=== PATIENT | female | born 1950 | race Caucasian/White ===

== ENCOUNTER 2017-08-31 17:10 | Emergency (ER) | payer MEDICARE, BC ==
[~2017-08-31] VITALS: Ht 165.1 cm; Wt 61.2 kg
[2017-08-31] MEDS ORDERED: ZOFRAN4 M3 ORAL (17:20)
[2017-08-31 17:35] VITALS: BP 114/57
--- NOTE | 2017-08-31 17:36 | Emergency Room Report ---
History of Present Illness General Chief Complaint: Abdominal Pain Source: Patient Present Illness HPI Patient presents with severe nausea. She feels bile coming up into her chest. This began several hours ago. She took Zofran earlier but it didn't help her. She felt intermittently nauseated after she had a laparoscopic cholecystectomy on July 09. She moved her bowels earlier today and stool was somewhat dark but not tarry. She's denies any fevers. There's no dyspnea. She states that the discomfort in her abdomen is about 8/10 at this time. She denies that it is "pain" - more queeziness and nausea. She's had to monitor how she eats after the laparoscopic cholecystectomy. Since that operation she's had problems with sinus congestion. She took some Tylenol earlier because of sinus pressure. She flew here from [place] to attend a wedding. She denies any major medical problems and doesn't take any medications on routine basis. She has asthma but has not heard herself wheezing. No dysuria, rashes, joint pain. Later in course she admits to waking up with a headache - pressure. Not sudden. Rates pain at 6-7/10, not radiate - more frontal, but global. Not usually with headache. Allergies: Coded Allergies: No Known Allergies (Unverified , 08/31/17) Patient History Past Medical History: see triage record Past Surgical History: polo Social History: Denies: smoking, drug use Social History Narrative from [place] - here for marriage Reviewed Nursing Documentation: PMH: Agreed, PSxH: Agreed Nursing Documentation-PMH Hx Cancer: Yes - Melanoma Hx Gastrointestinal Problems: Yes - Lap polo 07/09/17 Review of Systems All Other Systems: negative except mentioned in HPI Physical Exam Vital Signs Date Time Temp Pulse Resp B/P (MAP) Pulse Ox O2 Delivery O2 Flow Rate FiO2 08/31/17 17:13 98.8 80 18 113/59 98 Room Air Sp02 EP Interpretation: reviewed, normal General Appearance: no apparent distress - but appears ill, GCS 15, non-toxic Head: normocephalic, atraumatic Eyes: bilateral eye normal inspection, bilateral eye PERRL, bilateral eye EOMI ENT: moist mucus membranes, nasal congestion - clear Neck: supple, no meningismus Respiratory: lungs clear, normal breath sounds Cardiovascular #1: regular rate, rhythm Cardiovascular #2: 2+ radial (R) Gastrointestinal: normal inspection, normal bowel sounds, non tender, no mass, non-distended Rectal: heme negative stool Musculoskeletal: back normal, normal range of motion Neurologic: alert, oriented x3, vacuum technician III-XII nml as tested, motor strength/tone normal, DTRs symmetric, sensory intact, cerebellar normal, normal gait, speech normal Psychiatric: mood/affect normal Skin: normal inspection, warm/dry Medical Decision Making Diagnostic Impression: Primary Impression: Severe nausea Additional Impressions: Sinus headache Dehydration ER Course Patient presents with severe nausea and epigastric discomfort. Differential includes acute myocardial infarction, acute coronary syndrome, small bowel obstruction, postnasal drip amongst others. Zofran was not helpful. Evaluation with EKG, CXR, labs. Treatment with IV hydration, reglan, benadryl and pepcid. Concern for silent ischemic event. EKG no injury. Labs with elevated BUN. Stool guaiac negative. Min improvement. Zofran repeated and on repeat eval, she reported headache. CT head ordered. CT normal. Discussed possible observation for MRI in AM. She requested further hydration and repeat evaluation. Patient much improved and wants outpatient observation. Sinus congestion much improved after benadryl. UA reviewed and patient denies dysuria. Will check culture and contact patient if antibiotics indicated. No medical emergency at this time. Will observe as outpatient. Laboratory Tests Test 08/31/17 17:43 08/31/17 20:00 White Blood Count 8.8 K/UL (4.8-10.8) Red Blood Count 5.08 M/UL (4.20-5.40) Hemoglobin 14.7 G/DL (12.0-16.0) Hematocrit 46.7 % (37.0-47.0) Mean Corpuscular Volume 92 FL (80-99) Mean Corpuscular Hemoglobin 29.0 PG (27.0-31.0) Mean Corpuscular Hemoglobin Concent 31.5 G/DL (32.0-36.0) L Red Cell Distribution Width 12.0 % (11.6-14.8) Platelet Count 171 K/UL (150-450) Mean Platelet Volume 8.6 FL (6.5-10.1) Neutrophils (%) (Auto) % (45.0-75.0) Lymphocytes (%) (Auto) % (20.0-45.0) Monocytes (%) (Auto) % (1.0-10.0) Eosinophils (%) (Auto) % (0.0-3.0) Basophils (%) (Auto) % (0.0-2.0) Differential Total Cells Counted 100 Neutrophils % (Manual) 84 % (45-75) H Lymphocytes % (Manual) 8 % (20-45) L Monocytes % (Manual) 4 % (1-10) Eosinophils % (Manual) 0 % (0-3) Basophils % (Manual) 0 % (0-2) Band Neutrophils 4 % (0-8) Platelet Estimate Adequate Platelet Morphology Normal Red Blood Cell Morphology Normal Prothrombin Time 10.2 SEC (9.30-11.50) Prothrombin Time INR 1.0 (0.9-1.1) PTT 28 SEC (23-33) Sodium Level 142 MMOL/L (136-145) Potassium Level 3.8 MMOL/L (3.5-5.1) Chloride Level 106 MMOL/L (98-107) Carbon Dioxide Level 29 MMOL/L (21-32) Anion Gap 8 mmol/L (5-15) Blood Urea Nitrogen 20 mg/dL (7-18) H Creatinine 0.8 MG/DL (0.55-1.30) Estimate Glomerular Filtration Rate > 60 mL/min (>60) Glucose Level 97 MG/DL (74-106) Calcium Level 8.7 MG/DL (8.5-10.1) Total Bilirubin 1.1 MG/DL (0.2-1.0) H Direct Bilirubin 0.2 MG/DL (0.0-0.3) Aspartate Amino Transferase (AST) 19 U/L (15-37) Alanine Aminotransferase (ALT) 18 U/L (12-78) Alkaline Phosphatase 77 U/L (46-116) Troponin I 0.000 ng/mL (0.000-0.056) Total Protein 7.3 G/DL (6.4-8.2) Albumin 3.8 G/DL (3.4-5.0) Globulin 3.5 g/dL Albumin/Globulin Ratio 1.1 (1.0-2.7) Lipase 123 U/L (73-393) Urine Color Pale yellow Urine Appearance Clear Urine pH 5 (4.5-8.0) Urine Specific [place] 1.010 (1.005-1.035) Urine Protein Negative (NEGATIVE) Urine Glucose (UA) Negative (NEGATIVE) Urine Ketones Negative (NEGATIVE) Urine Occult Blood 2+ (NEGATIVE) H Urine Nitrite Negative (NEGATIVE) Urine Bilirubin Negative (NEGATIVE) Urine Urobilinogen Normal MG/DL (0.0-1.0) Urine Leukocyte Esterase 1+ (NEGATIVE) H Urine RBC 2-4 /HPF (0 - 2) H Urine WBC 5-10 /HPF (0 - 2) H Urine Squamous Epithelial Cells Few /LPF (NONE/OCC) Urine Bacteria Few /HPF (NONE) Urine Mucus Few /LPF (NONE/OCC) H EKG Diagnostic Results Rate: normal Rhythm: NSR ST Segments: no acute changes - STACEY Rhythm Strip Diag. Results EP Interpretation: yes Rhythm: NSR, no PVC's, no ectopy Chest X-Ray Diagnostic Results Chest X-Ray Diagnostic Results : Chest X-Ray Ordered: Yes # of Views/Limited/Complete: 1 View Indication: Other Interpretation: no consolidation, no effusion, no pneumothorax, no acute cardiopulmonary disease Impression: No acute disease Electronically Signed by: Erick Williamson MD CT/MRI/US Diagnostic Results CT/MRI/US Diagnostic Results : Imaging Test Ordered: head Impression no bleed, mass or other pathology Last Vital Signs Date Time Temp Pulse Resp B/P (MAP) Pulse Ox O2 Delivery O2 Flow Rate FiO2 08/31/17 22:50 98.1 78 18 116/64 97 Room Air Status: improved Disposition: HOME, SELF-CARE Condition: Improved Scripts Diphenhydramine Hcl* (BENADRYL*) 25 Mg Capsule 25 MG ORAL Q6H Y for congestion, #14 CAP Prov: Erick Williamson M.D. 08/31/17 Promethazine Hcl (PROMETHEGAN) 25 Mg Supp.rect 25 MG RC Q8HR Y for nausea, #3 SUPP 1 Refill Prov: Erick Williamson M.D. 08/31/17 Promethazine Hcl* (PHENERGAN*) 25 Mg Tablet 25 MG ORAL Q8HR Y for nausea, #8 TAB 0 Refills Prov: Erick Williamson M.D. 08/31/17 Famotidine (PEPCID) 20 Mg Tablet 20 MG ORAL DAILY, #10 TAB 0 Refills Prov: Erick Williamson M.D. 08/31/17 Erick Williamson M.D. Aug 31, 2017 17:36
[2017-08-31] MEDS ORDERED: Metoclopramide 10mg/2ml Inj IVP ONE (17:45)
[2017-08-31] MEDS ORDERED: DiphenhydrAMINE 50mg/ml Inj IVP ONE (17:45)
[2017-08-31] MEDS ORDERED: Morphine Sulfate 2mg/ml Inj IVP ONE (17:45)
[2017-08-31 18:03] LABS: MEAN CORPUSCULAR HGB CONC 31.5 G/DL (32.0-36.0); MEAN CORPUSCULAR VOLUME 92 FL (80-99); MEAN PLATELET VOLUME 8.6 FL (6.5-10.1); PLATELET COUNT 171 K/UL (150-450); RED BLOOD COUNT 5.08 M/UL (4.20-5.40); WHITE BLOOD COUNT 8.8 K/UL (4.8-10.8)
[2017-08-31 18:22] LABS: ANION GAP 8 mmol/L (5-15); CALCIUM 8.7 MG/DL (8.5-10.1); CARBON DIOXIDE 29 MMOL/L (21-32); CHLORIDE 106 MMOL/L (98-107); CREATININE 0.8 MG/DL (0.55-1.30); GLOMERULAR FILTRATION RATE > 60 mL/min (>60); POTASSIUM 3.8 MMOL/L (3.5-5.1); SODIUM 142 MMOL/L (136-145)
[2017-08-31 18:25] LABS: PROTHROMBIN TIME 10.2 SEC (9.30-11.50)
[2017-08-31 18:34] LABS: ALANINE AMINOTRANSFERASE 18 U/L (12-78); ALBUMIN/GLOBULIN RATIO 1.1 (1.0-2.7); LIPASE 123 U/L (73-393); TOTAL PROTEIN 7.3 G/DL (6.4-8.2)
[2017-08-31 18:51] LABS: BILIRUBIN,DIRECT 0.2 MG/DL (0.0-0.3)
[2017-08-31 19:10] VITALS: BP 118/57
[2017-08-31 19:14] LABS: ASPARTATE AMINO TRANSFERASE 19 U/L (15-37)
[2017-08-31 20:10] VITALS: BP 121/62
[2017-08-31 20:22] LABS: APPEARANCE,URINE CLEAR; KETONES,URINE NEGATIVE (NEGATIVE); LEUKOCYTE ESTERASE ,URINE 1+ (NEGATIVE); NITRITE,URINE NEGATIVE (NEGATIVE); PH,URINE 5 (4.5-8.0); PROTEIN,URINE NEGATIVE (NEGATIVE); UROBILINOGEN,URINE NORMAL MG/DL (0.0-1.0)
[2017-08-31 20:24] LABS: BACTERIA,URINE FEW /HPF; MUCUS,URINE FEW /LPF (NONE/OCC); SQUAMOUS EPITHELIAL CELL,UR FEW /LPF (NONE/OCC)
[2017-08-31 21:10] VITALS: BP 114/61
[2017-08-31 21:38] LABS: BAND NEUTROPHILS % (MANUAL) 4 % (0-8); LYMPHOCYTES % (MANUAL) 8 % (20-45); NEUTROPHILS % (MANUAL) 84 % (45-75); PLATELET MORPHOLOGY NORMAL; TOTAL CELLS COUNTED 100
[2017-08-31 21:39] LABS: BASOPHILS % (MANUAL) 0 % (0-2); EOSINOPHILS % (MANUAL) 0 % (0-3); PLATELET ESTIMATE ADEQUATE
[2017-08-31 22:14] VITALS: BP 116/64
[2017-08-31] MEDS ORDERED: PEPCID20 MG ORAL (22:35)
[2017-08-31] MEDS ORDERED: PHENERGAN25 M1 ORAL (22:35)
[2017-08-31] MEDS ORDERED: BENADRYL25 MG ORAL (22:35)
[2017-08-31] MEDS ORDERED: PROMETHEGAN25 MG RC (22:35)
[2017-08-31 22:50] VITALS: BP 116/64
--- NOTE | 2017-09-01 09:31 | Diagnostic Imaging Report ---
Indication: Headache Technique: Continuous helical CT scanning of the head was performed without intravenous contrast material. Axial and coronal 5 mm sections were generated. Radiation dose was minimized using automated exposure control Dose: Total Dose Length Product - DLP [address] Dose Index - CTDIvol(s) 70.38 mGy. Comparison: None Findings: The ventricular system is normal in size and configuration. There is no shift of midline structures. No abnormal extra-axial fluid collections are noted. There is no evidence of intracerebral bleeding. No other abnormal high or low density areas are noted within the brain. Impression: Normal CT scan of the head without contrast material. This agrees with the preliminary interpretation provided overnight by [facility]. The CT scanner at [facility] is accredited by the [employer] and the scans are performed using protocols designed to limit radiation exposure to as low as reasonably achievable to attain images of sufficient resolution adequate for diagnostic evaluation.
--- NOTE | 2017-09-01 10:18 | Diagnostic Imaging Report ---
Indication: Chest pain Technique: One view of the chest Comparison: none Findings: No acute infiltrates, effusions, or congestion. Tortuous calcified aorta. Normal heart size. Upper mediastinum unremarkable. Impression: No acute process. This agrees with the preliminary interpretation provided by the emergency room physician
--- NOTE | 2017-09-01 10:19 | Diagnostic Imaging Report ---
Indication: Abdominal pain nausea Technique: Supine view of the abdomen Comparison: none Findings: Bowel gas pattern is unremarkable. No unusual masses or calcifications. There are cholecystectomy clips. Impression: No acute process This agrees with the preliminary interpretation provided by the emergency room physician
--- NOTE | 2017-09-01 19:23 | Cardiology Report ---
APPROVED REPORT EKG Measurement Heart [id number] Normal sinus rhythm Right atrial enlargement Borderline ECG
== END 2017-08-31 22:50 | disposition home or self-care (01) ==
LOC: EMR 17:35
DX: R11.0 Nausea (principal); R51 Headache; E86.0 Dehydration; R10.9 Unspecified abdominal pain; Z90.49 Acquired absence of other specified parts of digestive tract; Z85.820 Personal history of malignant melanoma of skin
CPT/HCPCS: 36415; 70450; 71010; 74000; 80053; 81003; 82248; 82962; 83690; 84484; 85007; 85025; 85610; 85730; 93005; 96361; 96374; 96375; 99284; J1200; J2405; J2765; S0028